=== PATIENT | male | born 1940 | race Caucasian/White ===

== ENCOUNTER 2021-06-14 10:07 | Outpatient (CLI) | payer MEDICARE, OTHER | END 2021-06-14 10:08 | disposition home or self-care (01) | LOC: RAD 10:07 | PROVIDERS: ATTEND Internal Medicine | DX: R06.00 Dyspnea, unspecified (principal) | CPT/HCPCS: 71046 ==

== ENCOUNTER 2021-07-27 12:38 | Outpatient (CLI) | payer MEDICARE ==
[2021-07-27 14:59] LABS: #Monocytes 0.5 10x3/uL (0.0-1.1); #Neutrophils 8.9 10x3/uL (1.5-8.4); %Basophils 0.1 % (0.0-2.0); %Lymphocytes 13.6 % (18.0-47.0); %Monocytes 4.6 % (0.0-10.0); %Neutrophils 81.1 % (40.0-75.0); Hemoglobin 13.6 g/dL (13.5-17.5); Mean Corpuscular Hemoglobin 30.1 pg (27.0-33.0); Mean Corpuscular Volume 91.2 fl (81.2-95.1); Mean Platelet Volume 9.4 fl (7.4-10.4); Platelet Count 193 10x3/uL (150-450); RBC Distribution Width 12.9 % (11.5-14.5); Red Blood Cell (RBC) Count 4.52 10x6/uL (4.32-5.72)
[2021-07-27 15:19] LABS: ALT (SGPT) 15 U/L (8-55); AST (SGOT) 16 U/L (5-34); Albumin 4.2 g/dL (3.4-4.8); Alkaline Phosphatase 42 U/L (40-110); Anion Gap 14 mmol/L (10-20); BUN (Urea Nitrogen) 21 mg/dL (8.4-25.7); Bilirubin, Total 0.6 mg/dL (0.2-1.2); Calc. Creatinine Clearance 0 mL/min (70-130); Carbon Dioxide 24 mmol/L (23-31); Chloride 106 mmol/L (98-107); Globulin 3.4 g/dL (2.4-3.5); Glucose 149 mg/dL (83-110); Potassium 3.9 mmol/L (3.5-5.1); Protein, Total 7.6 g/dL (5.8-8.1); Sodium 140 mmol/L (136-145)
[2021-07-28 13:55] LABS: SARS-CoV-2 PCR by NAA Not Detected (NotDetected)
== END 2021-07-27 12:39 | disposition home or self-care (01) ==
LOC: LABBT 12:38
PROVIDERS: ATTEND Internal Medicine Cardiovascular Disease
DX: Z01.812 Encounter for preprocedural laboratory examination (principal); R94.39 Abnormal result of other cardiovascular function study; Z20.822 Contact with and (suspected) exposure to COVID-19
CPT/HCPCS: 80053; 85025; U0003; U0005

== ENCOUNTER 2021-08-02 12:57 | Outpatient (CLI) | payer MEDICARE ==
[2021-08-03 11:22] LABS: SARS-CoV-2 PCR by NAA Not Detected (NotDetected)
== END 2021-08-02 12:58 | disposition home or self-care (01) ==
LOC: LABBT 12:57
PROVIDERS: ATTEND Internal Medicine Cardiovascular Disease
DX: Z01.812 Encounter for preprocedural laboratory examination (principal); Z20.822 Contact with and (suspected) exposure to COVID-19
CPT/HCPCS: U0003; U0005

== ENCOUNTER 2021-08-03 06:12 | Day surgery (SDC) | payer MEDICARE ==
[2021-07-31 12:26] VITALS: BMI 35.5
[2021-08-03] MEDS ORDERED: Midazolam HCl 2 mg/2 ml Vial ONE (08:05)
[2021-08-03] MEDS ORDERED: Fentanyl 100 MCG/2 ML VIAL ONE (08:06)
[2021-08-03] MEDS ORDERED: Iopamidol 370 76% 100 ML VIAL ONE (08:25)
[2021-08-03] MEDS ORDERED: Amlodipine 5 MG TAB ONE (14:55)
[2021-08-03] MEDS ORDERED: Furosemide 20 MG/2 ML VIAL ONE (15:11)
[2021-08-03] MEDS ORDERED: Potassium Chloride 20 MEQ TAB PO SCH (15:30)
[2021-08-03] MEDS ORDERED: Amlodipine 5 MG TAB PO SCH (15:30)
== END 2021-08-03 16:10 | disposition home or self-care (01) ==
LOC: CCL 06:12
PROVIDERS: ATTEND Internal Medicine Cardiovascular Disease
PROC: 4A023N7 Measurement of Cardiac Sampling and Pressure, Left Heart, Percutaneous Approach (ICD-10-PCS; principal; 2021-08-03)
PROC: B2111ZZ Fluoroscopy of Multiple Coronary Arteries using Low Osmolar Contrast (ICD-10-PCS; 2021-08-03)
DX: R94.39 Abnormal result of other cardiovascular function study (principal); I25.10 Atherosclerotic heart disease of native coronary artery without angina pectoris; E78.5 Hyperlipidemia, unspecified; E78.00 Pure hypercholesterolemia, unspecified; G47.33 Obstructive sleep apnea (adult) (pediatric); J45.909 Unspecified asthma, uncomplicated; R73.03 Prediabetes; I13.0 Hypertensive heart and chronic kidney disease with heart failure and stage 1 through stage 4 chronic kidney disease, or unspecified chronic kidney disease; N18.9 Chronic kidney disease, unspecified; I50.32 Chronic diastolic (congestive) heart failure; E66.01 Morbid (severe) obesity due to excess calories; Z68.35 Body mass index [BMI] 35.0-35.9, adult; Z85.46 Personal history of malignant neoplasm of prostate; Z79.82 Long term (current) use of aspirin; Z79.899 Other long term (current) drug therapy; Z88.6 Allergy status to analgesic agent; Z88.8 Allergy status to other drugs, medicaments and biological substances
CPT/HCPCS: 93458; 99152; 99153; J1940; J2250; J3010; Q9967

== ENCOUNTER 2021-10-04 11:24 | Outpatient (CLI) | payer MEDICARE ==
[2021-10-04 12:36] LABS: Hemoglobin 13.3 g/dL (13.5-17.5); Mean Corpuscular Hemoglobin 29.5 pg (27.0-33.0); Mean Corpuscular Volume 92.2 fl (81.2-95.1); Platelet Count 220 10x3/uL (150-450); RBC Distribution Width 14.1 % (11.5-14.5); Red Blood Cell (RBC) Count 4.51 10x6/uL (4.32-5.72); White Blood Cell (WBC) Count 7.9 10x3/uL (3.5-10.5)
[2021-10-04 13:01] LABS: Anion Gap 18 mmol/L (10-20); BUN (Urea Nitrogen) 11 mg/dL (8.4-25.7); Calc. Creatinine Clearance 0 mL/min (70-130); Calcium 9.1 mg/dL (7.8-10.44); Carbon Dioxide 23 mmol/L (23-31); Chloride 105 mmol/L (98-107); Glucose 106 mg/dL (83-110); Potassium 5.6 mmol/L (3.5-5.1); Sodium 140 mmol/L (136-145)
== END 2021-10-04 11:25 | disposition home or self-care (01) ==
LOC: LABBT 11:24
PROVIDERS: ATTEND Orthopaedic Surgery
DX: Z01.812 Encounter for preprocedural laboratory examination (principal); R94.39 Abnormal result of other cardiovascular function study
CPT/HCPCS: 80048; 85027; 86850; 86900; 86901

== ENCOUNTER 2021-10-04 11:45 | Inpatient (IN) | payer MEDICARE ==
[2021-10-03 14:06] VITALS: BMI 34.4
[2021-10-09] MEDS ORDERED: Lidocaine 1% MPF 2 ML VIAL ONE (06:16)
[2021-10-09] MEDS ORDERED: Albumin 5% 500 ML ONE (06:16)
[2021-10-09] MEDS ORDERED: Midazolam HCl 5 mg/5 ml Vial ONE (06:47)
[2021-10-09] MEDS ORDERED: Fentanyl 250 MCG/5 ML VIAL ONE (06:47)
[2021-10-09] MEDS ORDERED: Heparin 10,000 UNITS/1 ML VIAL 30,000 UNITS in Sodium Chloride 0.9% 1,000 ML FS SCH (07:00)
== END 2021-10-09 07:15 | disposition home or self-care (01) | DRG 303 ==
LOC: SURG A 10-09 05:51
PROVIDERS: ADMIT Thoracic Surgery (Cardiothoracic Vascular Surgery); ATTEND Thoracic Surgery (Cardiothoracic Vascular Surgery)
DX: I25.10 Atherosclerotic heart disease of native coronary artery without angina pectoris (principal); Z20.822 Contact with and (suspected) exposure to COVID-19; E78.5 Hyperlipidemia, unspecified; I10 Essential (primary) hypertension; E66.01 Morbid (severe) obesity due to excess calories; G47.33 Obstructive sleep apnea (adult) (pediatric); Z79.82 Long term (current) use of aspirin; Z79.890 Hormone replacement therapy; Z79.899 Other long term (current) drug therapy; Z98.890 Other specified postprocedural states; Z85.46 Personal history of malignant neoplasm of prostate; Z87.891 Personal history of nicotine dependence; Z88.8 Allergy status to other drugs, medicaments and biological substances; Z68.34 Body mass index [BMI] 34.0-34.9, adult; Z53.9 Procedure and treatment not carried out, unspecified reason
CPT/HCPCS: 86850; 86900; 86901; J2250; J3010; P9045

== ENCOUNTER 2021-11-07 11:15 | Inpatient (IN) | payer MEDICARE ==
[2021-11-07 11:31] LABS: Hemoglobin 13.9 g/dL (13.5-17.5); Mean Corpuscular HGB CONC 32.8 g/dL (32.0-36.0); Mean Corpuscular Hemoglobin 30.6 pg (27.0-33.0); Mean Corpuscular Volume 93.4 fl (81.2-95.1); Mean Platelet Volume 8.8 fl (7.4-10.4); Platelet Count 163 10x3/uL (150-450); RBC Distribution Width 14.4 % (11.5-14.5); Red Blood Cell (RBC) Count 4.54 10x6/uL (4.32-5.72)
[2021-11-07 12:05] LABS: Anion Gap 14 mmol/L (10-20); BUN (Urea Nitrogen) 16 mg/dL (8.4-25.7); Calc. Creatinine Clearance 0 mL/min (70-130); Calcium 9.1 mg/dL (7.8-10.44); Carbon Dioxide 26 mmol/L (23-31); Chloride 103 mmol/L (98-107); Glucose 103 mg/dL (83-110); Potassium 4.2 mmol/L (3.5-5.1); Sodium 139 mmol/L (136-145)
[2021-11-07 19:25] LABS: SARS-CoV-2 PCR by NAA Not Detected (NotDetected)
[2021-11-12] MEDS ORDERED: Albumin 5% 500 ML ONE (06:16)
[2021-11-12] MEDS ORDERED: Fentanyl 250 MCG/5 ML VIAL ONE ×3 (06:41)
[2021-11-12] MEDS ORDERED: Heparin 10,000 UNITS/1 ML VIAL 30,000 UNITS in Sodium Chloride 0.9% 1,000 ML FS SCH (06:45)
[2021-11-12] MEDS ORDERED: ceFAZolin 2 GM/DEX 5% 100 ML BAG ONE ×2 (07:04→07:05)
[2021-11-12] MEDS ORDERED: Thrombin 5000 UNITS/5 ML VIAL ONE (07:46)
[2021-11-12] MEDS ORDERED: Cardioplegic Soln 1,000 ML BAG ONE (07:46)
[2021-11-12] MEDS ORDERED: ePHEDrine 50 MG/ML VIAL ONE (07:46)
[2021-11-12] MEDS ORDERED: Rocuronium Bromide 10 MG/ML (10ML VIAL) ONE (07:46)
[2021-11-12] MEDS ORDERED: Magnesium Sulfate 1 GM/2 ML VIAL ONE (07:46)
[2021-11-12] MEDS ORDERED: Protamine Sulfate 250 MG/25 ML VIAL ONE (07:46)
[2021-11-12] MEDS ORDERED: Heparin 5,000 UNITS/ML VIAL ONE (07:46)
[2021-11-12] MEDS ORDERED: Aminocaproic Acid 5 GM/20 ML VIAL ONE (07:46)
[2021-11-12] MEDS ORDERED: Papaverine 60 MG/2 ML VIAL ONE (07:46)
[2021-11-12] MEDS ORDERED: Norepinephrine 4 MG/4 ML VIAL ONE (07:46)
[2021-11-12] MEDS ORDERED: Heparin 30,000 units/30 ml VIAL ONE (07:46)
[2021-11-12] MEDS ORDERED: Potassium Chloride 60 MEQ/30 ML VIAL ONE (07:46)
[2021-11-12] MEDS ORDERED: Calcium Chloride 1 GM/10 ML Abboject SYRINGE ONE (07:46)
[2021-11-12] MEDS ORDERED: Lidocaine 2% PF 100 mg/5 ml Syringe ONE (07:46)
[2021-11-12] MEDS ORDERED: PROPOFOL 200 MG/20 ML VIAL ONE (07:46)
[2021-11-12] MEDS ORDERED: Sodium Bicarb 50 MEQ/50 ML Abboject 8.4% SYRINGE ONE (07:46)
[2021-11-12] MEDS ORDERED: PHENYLEPHRINE-NS 100 MCG/ML 10 ML SYRINGE ONE (09:27)
[2021-11-12] MEDS ORDERED: Norepinephrine 8 MG/0.9% NS 250 ML IVPB PRN (11:27)
[2021-11-12] MEDS ORDERED: Bisacodyl 5 MG TAB PO PRN (11:27)
[2021-11-12] MEDS ORDERED: HYDROcodone/Acetaminophen 5/325 mg Tablet PO PRN (11:27)
[2021-11-12] MEDS ORDERED: Hetastarch 6% 500 ML 500 ML IVPB PRN (11:27)
[2021-11-12] MEDS ORDERED: Fentanyl 100 MCG/2 ML VIAL SLOW IVP PRN (11:27)
[2021-11-12] MEDS ORDERED: DOPamine 400 MG/D5W 250 ML 250 ML IVPB PRN (11:27)
[2021-11-12] MEDS ORDERED: Guaifenesin DM 100-10/5 ML UDCUP PO PRN (11:27)
[2021-11-12] MEDS ORDERED: Bisacodyl 10 MG SUPP PR PRN (11:27)
[2021-11-12] MEDS ORDERED: Promethazine HCl 25 MG/ML VIAL IM PRN (11:27)
[2021-11-12] MEDS ORDERED: Post-Op Insulin Drip Protocol IVPB ONE (11:27)
[2021-11-12] MEDS ORDERED: Ondansetron PF 4 MG/2 ML Vial IVP PRN (11:27)
[2021-11-12] MEDS ORDERED: Potassium Chloride 20 MEQ/100 ML PREMIX BAG IVPB PRN (11:27)
[2021-11-12] MEDS ORDERED: Mag-Al 1200 mg/1200 mg/30 ML UDCUP PO PRN (11:27)
[2021-11-12] MEDS ORDERED: HUMULIN R 100 UNITS in Sodium Chloride 0.9% 100 ML IVPB SCH (11:45)
[2021-11-12] MEDS ORDERED: Dextrose 50% Abboject 50 ML SYRINGE SLOW IVP PRN (11:45)
[2021-11-12] MEDS ORDERED: Dextrose 5% in Water 1,000 ML IV PRN (11:45)
[2021-11-12 12:01] LABS: Actual Bicarbonate (HCO3a) 23.9 mEq/L (22-28); Base Excess (BEa) -1.4 mEq/L (-2.0 to +3.0); CO2 Tension 42.2 mmHg (35.0-45.0); Calcium, Ionized (arterial) 1.15 mmol/L (1.12-1.30); Carboxyhemoglobin (COHb) 0.7 gm% (0.0-3.0); Hemoglobin (Hb) 12.8 g/dL (14.0-18.0); O2 Tension (PaO2), arterial 109.5 mmHg (> 70.0); Potassium - ABG Lab 3.77 mmol/L (3.70-5.30); pH, Arterial 7.37 (7.35-7.45)
[2021-11-12 12:03] LABS: Puncture Site Arterial Line
[2021-11-12] MEDS: Morphine 4 MG/ML VIAL SLOW IVP PRN ×2 (12:08→13:07)
[2021-11-12] MEDS: Insulin Regular 300 UNITS/3 ML VIAL SC PRN ×3 (12:11→21:35)
[2021-11-12] MEDS: Lactated Ringer's 1,000 ML IV SCH (12:12)
[2021-11-12] MEDS: Nitroglycerin 50 MG/250 ML BOT 250 ML IVPB PRN (12:16)
[2021-11-12 12:29] LABS: INR-International Normal Ratio 1.2; Prothrombin Time 15.6 sec (12.0-14.7)
[2021-11-12 12:30] LABS: PTT 29.9 sec (22.9-36.1)
[2021-11-12 12:35] LABS: Anion Gap 7 mmol/L (10-20); BUN (Urea Nitrogen) 11 mg/dL (8.4-25.7); Calc. Creatinine Clearance 105 mL/min (70-130); Calcium 7.8 mg/dL (7.8-10.44); Carbon Dioxide 26 mmol/L (23-31); Chloride 110 mmol/L (98-107); Glucose 138 mg/dL (83-110); Potassium 3.7 mmol/L (3.5-5.1); Sodium 139 mmol/L (136-145)
[2021-11-12 13:03] LABS: Actual Bicarbonate (HCO3a) 23.4 mEq/L (22-28); Base Excess (BEa) -1.7 mEq/L (-2.0 to +3.0); CO2 Tension 41.2 mmHg (35.0-45.0); Calcium, Ionized (arterial) 1.15 mmol/L (1.12-1.30); Carboxyhemoglobin (COHb) 0.6 gm% (0.0-3.0); Hemoglobin (Hb) 13.6 g/dL (14.0-18.0); O2 Tension (PaO2), arterial 103.8 mmHg (> 70.0); Potassium - ABG Lab 3.45 mmol/L (3.70-5.30); pH, Arterial 7.37 (7.35-7.45)
[2021-11-12] MEDS: hydrALAZINE 20 MG/ML VIAL SLOW IVP PRN (13:08)
[2021-11-12 13:12] LABS: #Eosinphils 0.3 thou/uL (0.0-0.7); #Lymphocytes 2.6 thou/uL (1.20-3.40); #Monocytes 0.4 thou/uL (0.11-0.59); #Neutrophils 6.8 thou/uL (1.40-6.50); %Basophils 0.2 % (0.0-1.0); %Eosinophils 2.5 % (0.0-10.0); %Lymphocytes 25.8 % (21.0-51.0); %Neutrophils 67.5 % (42.0-75.0); Hemoglobin 12.1 g/dL (14.0-18.0); MDiff Complete? YES; Mean Corpuscular HGB CONC 33.1 g/dL (32.0-36.0); Mean Corpuscular Hemoglobin 32.3 pg (27.0-31.0); Mean Corpuscular Volume 97.6 fL (78.0-98.0); Platelet Count 119 thou/uL (130-400); Platelet Morphology Comment Appears Decreased; Polychromasia SLIGHT = 2-3 cells (100X) (0-2/hpf); RBC Distribution Width 13.2 % (11.5-14.5); Red Blood Cell (RBC) Count 3.75 mill/uL (4.70-6.10); White Blood Cell (WBC) Count 10.1 thou/uL (4.8-10.8)
[2021-11-12 13:36] LABS: Puncture Site Arterial Line
[2021-11-12] MEDS: Fentanyl 100 MCG/2 ML VIAL SLOW IVP PRN ×4 (14:21→23:21)
[2021-11-12] MEDS: CEFAZOLIN 2 GM, Admixture Fee 1 EACH in Sodium Chloride 0.9% 100 ML IVPB SCH ×2 (14:40→23:26)
[2021-11-12] MEDS: HYDROcodone/Acetaminophen 5/325 mg Tablet PO PRN ×2 (16:28→21:36)
[2021-11-12 18:04] LABS: Hemoglobin 12.8 g/dL (14.0-18.0)
[2021-11-12 18:14] LABS: Potassium 3.7 mmol/L (3.5-5.1)
[2021-11-12] MEDS: Acetaminophen 325 MG TAB PO PRN (19:12)
[2021-11-12] MEDS ORDERED: Famotidine/PF 20 mg/2ml Vial SLOW IVP SCH (21:00)
[2021-11-12] MEDS ORDERED: Amlodipine 5 MG TAB PO SCH (21:30)
[2021-11-12] MEDS: Atorvastatin Calcium 10 MG TAB PO SCH (21:33)
[2021-11-13] MEDS: Lactated Ringer's 1,000 ML IV SCH (00:53)
[2021-11-13] MEDS: Insulin Regular 300 UNITS/3 ML VIAL SC PRN ×2 (00:54→04:46)
[2021-11-13] MEDS: Fentanyl 100 MCG/2 ML VIAL SLOW IVP PRN ×4 (02:20→11:52)
[2021-11-13] MEDS: HYDROcodone/Acetaminophen 5/325 mg Tablet PO PRN ×3 (04:44→15:55)
[2021-11-13 05:21] LABS: #Lymphocytes 1.6 thou/uL (1.20-3.40); #Monocytes 0.9 thou/uL (0.11-0.59); #Neutrophils 6.9 thou/uL (1.40-6.50); %Eosinophils 0.4 % (0.0-10.0); %Lymphocytes 17.4 % (21.0-51.0); %Monocytes 9.1 % (0.0-10.0); %Neutrophils 73.1 % (42.0-75.0); Hemoglobin 12.5 g/dL (14.0-18.0); Mean Corpuscular HGB CONC 32.8 g/dL (32.0-36.0); Mean Corpuscular Hemoglobin 32.6 pg (27.0-31.0); Mean Corpuscular Volume 99.6 fL (78.0-98.0); Mean Platelet Volume 6.5 fL (7.4-10.4); Platelet Count 149 thou/uL (130-400); RBC Distribution Width 13.5 % (11.5-14.5); Red Blood Cell (RBC) Count 3.82 mill/uL (4.70-6.10); White Blood Cell (WBC) Count 9.4 thou/uL (4.8-10.8)
[2021-11-13 05:37] LABS: Anion Gap 11 mmol/L (10-20); BUN (Urea Nitrogen) 12 mg/dL (8.4-25.7); Calc. Creatinine Clearance 97 mL/min (70-130); Calcium 8.1 mg/dL (7.8-10.44); Carbon Dioxide 22 mmol/L (23-31); Chloride 109 mmol/L (98-107); Glucose 155 mg/dL (83-110); Potassium 4.2 mmol/L (3.5-5.1); Sodium 138 mmol/L (136-145)
[2021-11-13] MEDS: Nitroglycerin 50 MG/250 ML BOT 250 ML IVPB PRN (06:28)
[2021-11-13] MEDS: Levothyroxine Sodium 75 MCG TAB PO SCH (06:54)
[2021-11-13] MEDS: CEFAZOLIN 2 GM, Admixture Fee 1 EACH in Sodium Chloride 0.9% 100 ML IVPB SCH (07:07)
[2021-11-13] MEDS ORDERED: Norepinephrine 8 MG in Dextrose 5% in Water 242 ML IVPB PRN (07:45)
[2021-11-13] MEDS: hydrALAZINE 20 MG/ML VIAL SLOW IVP PRN (08:22)
[2021-11-13] MEDS: Famotidine 20 MG TAB PO SCH ×2 (08:22→20:49)
[2021-11-13] MEDS: Aspirin 325 MG TAB PO SCH (08:22)
[2021-11-13] MEDS: Polyethylene Glycol 3350 17 GM Packet PO SCH (08:23)
[2021-11-13] MEDS ORDERED: Losartan 25 MG TAB PO SCH ×2 (09:00→15:45)
[2021-11-13] MEDS ORDERED: Amlodipine 5 MG TAB PO SCH (09:00)
[2021-11-13] MEDS: Gabapentin 400 MG CAP PO SCH ×3 (09:31→20:49)
[2021-11-13] MEDS ORDERED: cloNIDine 0.1 MG TAB PO SCH (12:30)
[2021-11-13 13:22] LABS: Analyzer IN Cardio OR; Base Excess (BEa) -0.3 mEq/L (-2.0 to +3.0); CO2 Tension 37.9 mmHg (35.0-45.0); Calcium, Ionized (arterial) 1.09 mmol/L (1.12-1.30); Carboxyhemoglobin (COHb) 0.3 gm% (0.0-3.0); Hemoglobin (Hb) 10.5 g/dL (14.0-18.0); O2 Tension (PaO2), arterial 143.8 mmHg (> 70.0); Potassium - ABG Lab 3.84 mmol/L (3.70-5.30); pH, Arterial 7.42 (7.35-7.45)
[2021-11-13 13:22] LABS: Actual Bicarbonate (HCO3a) 23.9 mEq/L (22-28); Analyzer IN Cardio OR; Base Excess (BEa) -0.3 mEq/L (-2.0 to +3.0); CO2 Tension 37.8 mmHg (35.0-45.0); Calcium, Ionized (arterial) 1.12 mmol/L (1.12-1.30); Carboxyhemoglobin (COHb) 0.7 gm% (0.0-3.0); Hemoglobin (Hb) 12.3 g/dL (14.0-18.0); O2 Tension (PaO2), arterial 80.8 mmHg (> 70.0); Potassium - ABG Lab 3.75 mmol/L (3.70-5.30); pH, Arterial 7.42 (7.35-7.45)
[2021-11-13] MEDS: niCARdipine 25 MG in Sodium Chloride 0.9% 250 ML 250 ML IVPB PRN ×3 (13:22→21:44)
[2021-11-13 13:23] LABS: Actual Bicarbonate (HCO3a) 21.4 mEq/L (22-28); Analyzer IN Cardio OR; Base Excess (BEa) -3.2 mEq/L (-2.0 to +3.0); CO2 Tension 36.5 mmHg (35.0-45.0); Calcium, Ionized (arterial) 1.09 mmol/L (1.12-1.30); Carboxyhemoglobin (COHb) 0.2 gm% (0.0-3.0); Hemoglobin (Hb) 10.5 g/dL (14.0-18.0); O2 Tension (PaO2), arterial 356.3 mmHg (> 70.0); Potassium - ABG Lab 4.33 mmol/L (3.70-5.30); pH, Arterial 7.39 (7.35-7.45)
[2021-11-13 13:23] LABS: Actual Bicarbonate (HCO3a) 23.7 mEq/L (22-28); Analyzer IN Cardio OR; Base Excess (BEa) -0.5 mEq/L (-2.0 to +3.0); CO2 Tension 36.9 mmHg (35.0-45.0); Calcium, Ionized (arterial) 1.03 mmol/L (1.12-1.30); Carboxyhemoglobin (COHb) 0.1 gm% (0.0-3.0); Hemoglobin (Hb) 10.6 g/dL (14.0-18.0); O2 Tension (PaO2), arterial 365.3 mmHg (> 70.0); Potassium - ABG Lab 4.15 mmol/L (3.70-5.30); pH, Arterial 7.43 (7.35-7.45)
[2021-11-13 13:23] LABS: Actual Bicarbonate (HCO3v) 23 mEq/L (22-28); Analyzer IN Cardio OR; Base Excess -2.2 mEq/L (-2.0 to +3.0); Calcium, Ionized (venous) 1.07 mmol/L (1.16-1.32); Chloride (VBG) 105 mmol/L (98-106); Hemoglobin (Hb) 10.7 g/dL (12.6-17.4); Potassium (VBG) 4.15 mmol/L (3.70-5.30); Sodium 135.5 mmol/L (133-146); pH (venous) 7.38 (7.32-7.43)
[2021-11-13] MEDS ORDERED: niCARdipine 25 MG/10 ML VIAL ONE (13:24)
[2021-11-13 13:44] LABS: Actual Bicarbonate (HCO3a) 24.7 mEq/L (22-28); Analyzer IN Cardio OR; Base Excess (BEa) -0.3 mEq/L (-2.0 to +3.0); CO2 Tension 41.8 mmHg (35.0-45.0); Calcium, Ionized (arterial) 1.12 mmol/L (1.12-1.30); Carboxyhemoglobin (COHb) 0.5 gm% (0.0-3.0); Hemoglobin (Hb) 12.5 g/dL (14.0-18.0); O2 Tension (PaO2), arterial 187.2 mmHg (> 70.0); Potassium - ABG Lab 3.53 mmol/L (3.70-5.30); pH, Arterial 7.39 (7.35-7.45)
[2021-11-13 13:45] LABS: Actual Bicarbonate (HCO3a) 24.1 mEq/L (22-28); Analyzer IN Cardio OR; Base Excess (BEa) -0.3 mEq/L (-2.0 to +3.0); CO2 Tension 38.5 mmHg (35.0-45.0); Calcium, Ionized (arterial) 1.14 mmol/L (1.12-1.30); Carboxyhemoglobin (COHb) 1.1 gm% (0.0-3.0); Hemoglobin (Hb) 12.9 g/dL (14.0-18.0); O2 Tension (PaO2), arterial 126.1 mmHg (> 70.0); Potassium - ABG Lab 3.61 mmol/L (3.70-5.30); pH, Arterial 7.41 (7.35-7.45)
[2021-11-13 13:46] LABS: Puncture Site Arterial Line
[2021-11-13 13:46] LABS: Puncture Site Arterial Line
[2021-11-13 13:47] LABS: Puncture Site Arterial Line
[2021-11-13 13:47] LABS: Puncture Site Arterial Line
[2021-11-13 13:48] LABS: Puncture Site Arterial Line
[2021-11-13 13:48] LABS: Puncture Site Arterial Line
[2021-11-13] MEDS: Carvedilol 3.125 MG TAB PO SCH (15:55)
[2021-11-13] MEDS: Amlodipine 5 MG TAB PO SCH (20:49)
[2021-11-13] MEDS: Atorvastatin Calcium 10 MG TAB PO SCH (20:49)
[2021-11-14] MEDS: Fentanyl 100 MCG/2 ML VIAL SLOW IVP PRN ×2 (01:58→06:51)
[2021-11-14] MEDS: niCARdipine 25 MG in Sodium Chloride 0.9% 250 ML 250 ML IVPB PRN (01:59)
[2021-11-14 04:12] LABS: #Basophils 0.2 thou/uL (0.0-0.2); #Lymphocytes 1.2 thou/uL (1.20-3.40); #Monocytes 0.8 thou/uL (0.11-0.59); %Basophils 1.6 % (0.0-1.0); %Eosinophils 0.2 % (0.0-10.0); %Lymphocytes 11.7 % (21.0-51.0); %Monocytes 7.8 % (0.0-10.0); %Neutrophils 78.6 % (42.0-75.0); Hemoglobin 12.1 g/dL (14.0-18.0); Mean Corpuscular HGB CONC 31.4 g/dL (32.0-36.0); Mean Corpuscular Hemoglobin 31.2 pg (27.0-31.0); Mean Corpuscular Volume 99.2 fL (78.0-98.0); Mean Platelet Volume 6.5 fL (7.4-10.4); Platelet Count 140 thou/uL (130-400); RBC Distribution Width 13.3 % (11.5-14.5); White Blood Cell (WBC) Count 10.2 thou/uL (4.8-10.8)
[2021-11-14] MEDS ORDERED: niCARdipine 50 MG, Admixture Fee 1 EACH in Sodium Chloride 0.9% 250 ML 230 ML IVPB PRN ×2 (04:28→08:25)
[2021-11-14 04:32] LABS: Anion Gap 11 mmol/L (10-20); BUN (Urea Nitrogen) 10 mg/dL (8.4-25.7); Calc. Creatinine Clearance 129 mL/min (70-130); Calcium 8.4 mg/dL (7.8-10.44); Carbon Dioxide 23 mmol/L (23-31); Chloride 106 mmol/L (98-107); Glucose 140 mg/dL (83-110); Potassium 3.6 mmol/L (3.5-5.1); Sodium 136 mmol/L (136-145)
[2021-11-14] MEDS: Levothyroxine Sodium 75 MCG TAB PO SCH (06:06)
[2021-11-14] MEDS ORDERED: Nitroglycerin 0.4 MG TAB (25 Tab Bottle) SL PRN (07:12)
[2021-11-14] MEDS: Aspirin 325 MG TAB PO SCH (10:22)
[2021-11-14] MEDS: Gabapentin 400 MG CAP PO SCH ×3 (10:22→20:20)
[2021-11-14] MEDS: Losartan 25 MG TAB PO SCH (10:24)
[2021-11-14] MEDS: Furosemide 40 MG TAB PO SCH (10:24)
[2021-11-14] MEDS: cloNIDine 0.1 MG TAB PO SCH ×2 (10:28→20:20)
[2021-11-14] MEDS: Carvedilol 3.125 MG TAB PO SCH ×2 (10:29→17:28)
[2021-11-14] MEDS: Famotidine 20 MG TAB PO SCH ×2 (10:29→20:21)
[2021-11-14] MEDS: Polyethylene Glycol 3350 17 GM Packet PO SCH (10:32)
[2021-11-14] MEDS: Simvastatin 10 MG TAB PO SCH (20:20)
[2021-11-14] MEDS: Amlodipine 5 MG TAB PO SCH (20:21)
[2021-11-15] MEDS: Acetaminophen 325 MG TAB PO PRN ×2 (03:46→20:34)
[2021-11-15] MEDS: Levothyroxine Sodium 75 MCG TAB PO SCH (06:03)
[2021-11-15] MEDS: Furosemide 40 MG TAB PO SCH (08:14)
[2021-11-15] MEDS: Carvedilol 3.125 MG TAB PO SCH ×2 (08:14→16:00)
[2021-11-15] MEDS: Gabapentin 400 MG CAP PO SCH ×3 (09:52→20:33)
[2021-11-15] MEDS: Losartan 25 MG TAB PO SCH (09:52)
[2021-11-15] MEDS: Famotidine 20 MG TAB PO SCH ×2 (09:53→20:33)
[2021-11-15] MEDS: cloNIDine 0.1 MG TAB PO SCH ×2 (09:53→20:34)
[2021-11-15] MEDS: Aspirin 325 MG TAB PO SCH (09:53)
[2021-11-15] MEDS: Polyethylene Glycol 3350 17 GM Packet PO SCH (09:53)
[2021-11-15] MEDS: Simvastatin 10 MG TAB PO SCH (20:33)
[2021-11-15] MEDS: Amlodipine 5 MG TAB PO SCH (20:35)
[2021-11-16] MEDS: hydrALAZINE 20 MG/ML VIAL SLOW IVP PRN ×2 (03:18→07:58)
[2021-11-16] MEDS: Levothyroxine Sodium 75 MCG TAB PO SCH (05:41)
[2021-11-16 05:59] VITALS: BMI 34.9
[2021-11-16] MEDS: Furosemide 40 MG TAB PO SCH (07:32)
[2021-11-16] MEDS: Carvedilol 3.125 MG TAB PO SCH (07:32)
[2021-11-16] MEDS ORDERED: Furosemide 40 MG/4 ML VIAL SLOW IVP SCH (09:00)
[2021-11-16] MEDS: Gabapentin 400 MG CAP PO SCH ×3 (09:02→22:16)
[2021-11-16] MEDS: Aspirin 325 MG TAB PO SCH (09:02)
[2021-11-16] MEDS: Losartan 25 MG TAB PO SCH (09:05)
[2021-11-16] MEDS: Famotidine 20 MG TAB PO SCH ×2 (09:05→22:17)
[2021-11-16] MEDS: cloNIDine 0.1 MG TAB PO SCH ×2 (09:06→22:16)
[2021-11-16] MEDS: Polyethylene Glycol 3350 17 GM Packet PO SCH (09:10)
[2021-11-16] MEDS: Digoxin 0.5 MG/2 ML AMP SLOW IVP SCH ×3 (09:37→22:31)
[2021-11-16] MEDS: Carvedilol 6.25 MG TAB PO SCH ×2 (16:33→22:17)
[2021-11-16] MEDS: Simvastatin 10 MG TAB PO SCH (22:14)
[2021-11-16] MEDS: Amlodipine 5 MG TAB PO SCH (22:14)
[2021-11-17] MEDS: Digoxin 0.5 MG/2 ML AMP SLOW IVP SCH (04:06)
[2021-11-17] MEDS: Levothyroxine Sodium 75 MCG TAB PO SCH (06:16)
[2021-11-17] MEDS: Gabapentin 400 MG CAP PO SCH ×3 (09:32→21:40)
[2021-11-17] MEDS: Losartan 25 MG TAB PO SCH (09:32)
[2021-11-17] MEDS: Aspirin 325 MG TAB PO SCH (09:32)
[2021-11-17] MEDS: Carvedilol 6.25 MG TAB PO SCH ×3 (09:34→21:41)
[2021-11-17] MEDS: cloNIDine 0.1 MG TAB PO SCH ×2 (09:38→21:42)
[2021-11-17] MEDS: Furosemide 40 MG TAB PO SCH ×2 (09:38→15:07)
[2021-11-17] MEDS: Famotidine 20 MG TAB PO SCH ×2 (09:38→21:43)
[2021-11-17] MEDS: Polyethylene Glycol 3350 17 GM Packet PO SCH (09:39)
[2021-11-17] MEDS: Simvastatin 10 MG TAB PO SCH (21:42)
[2021-11-17] MEDS: Amlodipine 5 MG TAB PO SCH (21:42)
[2021-11-18] MEDS: Levothyroxine Sodium 75 MCG TAB PO SCH (06:21)
[2021-11-18] MEDS ORDERED: Carvedilol 25 MG TAB PO SCH (08:00)
[2021-11-18] MEDS: Gabapentin 400 MG CAP PO SCH (09:54)
[2021-11-18] MEDS: Famotidine 20 MG TAB PO SCH (09:54)
[2021-11-18] MEDS: Aspirin 325 MG TAB PO SCH (09:54)
[2021-11-18] MEDS: cloNIDine 0.1 MG TAB PO SCH (09:57)
[2021-11-18] MEDS: Losartan 25 MG TAB PO SCH (09:57)
[2021-11-18] MEDS: Polyethylene Glycol 3350 17 GM Packet PO SCH (09:58)
[2021-11-18] MEDS: Furosemide 40 MG TAB PO SCH ×2 (09:58→13:51)
[2021-11-18 13:18] VITALS: BP 104/59; TEMP 98.3
[2021-11-18] MEDS ORDERED: Carvedilol 6.25 MG TAB PO SCH (17:00)
== END 2021-11-18 14:15 | disposition home or self-care (01) | DRG 236 ==
LOC: SURG A 11-12 06:06 → CCU 11-12 09:39 → 2NO 11-16 13:38
PROVIDERS: ADMIT Thoracic Surgery (Cardiothoracic Vascular Surgery); ATTEND Thoracic Surgery (Cardiothoracic Vascular Surgery)
PROC: 02100Z9 Bypass Coronary Artery, One Artery from Left Internal Mammary, Open Approach (ICD-10-PCS; principal; 2021-11-12)
PROC: 021309W Bypass Coronary Artery, Four or More Arteries from Aorta with Autologous Venous Tissue, Open Approach (ICD-10-PCS; 2021-11-12)
PROC: 06BP4ZZ Excision of Right Saphenous Vein, Percutaneous Endoscopic Approach (ICD-10-PCS; 2021-11-12)
PROC: 5A1221Z Performance of Cardiac Output, Continuous (ICD-10-PCS; 2021-11-12)
PROC: 02L70CK Occlusion of Left Atrial Appendage with Extraluminal Device, Open Approach (ICD-10-PCS; 2021-11-12)
DX: I25.10 Atherosclerotic heart disease of native coronary artery without angina pectoris (principal); I50.32 Chronic diastolic (congestive) heart failure; I48.20 Chronic atrial fibrillation, unspecified; Z20.822 Contact with and (suspected) exposure to COVID-19; Z96.651 Presence of right artificial knee joint; E66.01 Morbid (severe) obesity due to excess calories; E78.5 Hyperlipidemia, unspecified; G47.33 Obstructive sleep apnea (adult) (pediatric); R73.03 Prediabetes; I11.0 Hypertensive heart disease with heart failure; F32.A Depression, unspecified; J45.909 Unspecified asthma, uncomplicated; G62.9 Polyneuropathy, unspecified; I44.30 Unspecified atrioventricular block; R00.0 Tachycardia, unspecified; Z85.46 Personal history of malignant neoplasm of prostate; Z79.899 Other long term (current) drug therapy; Z79.890 Hormone replacement therapy; Z79.82 Long term (current) use of aspirin; Z68.33 Body mass index [BMI] 33.0-33.9, adult; Z98.890 Other specified postprocedural states; Z88.8 Allergy status to other drugs, medicaments and biological substances
CPT/HCPCS: 36415; 36416; 36430; 71045; 80048; 82805; 85025; 85027; 85610; 85730; 86850; 86900; 86901; 93005; 93010; 93798; 94002; C1713; C1751; C1776; J0360; J0690; J1160; J1642; J1644; J1815; J1940; J2001; J2270; J2440; J2704; J2720; J3010; J3370; J3475; J3480; J3490; J7050; J7120; P9045; S0017; S0028; U0003; U0005

== ENCOUNTER 2021-12-21 14:07 | Outpatient (CLI) | payer MEDICARE ==
[2021-12-22 12:37] LABS: SARS-CoV-2 PCR by NAA Not Detected (NotDetected)
== END 2021-12-21 14:08 | disposition home or self-care (01) ==
LOC: LABBT 14:07
PROVIDERS: ATTEND Internal Medicine Cardiovascular Disease
DX: Z20.822 Contact with and (suspected) exposure to COVID-19 (principal)
CPT/HCPCS: U0003; U0005

== ENCOUNTER 2021-12-26 09:19 | Day surgery (SDC) | payer MEDICARE ==
[2021-12-24 13:04] VITALS: BMI 33.3
[2021-12-26] MEDS ORDERED: PROPOFOL 20 ML ONE (10:58)
[2021-12-26 12:18] LABS: Hemoglobin 11.9 g/dL (14.0-18.0); Mean Corpuscular HGB CONC 31.5 g/dL (32.0-36.0); Mean Corpuscular Volume 98.4 fL (78.0-98.0); Mean Platelet Volume 6.3 fL (7.4-10.4); Platelet Count 220 thou/uL (130-400); RBC Distribution Width 12.5 % (11.5-14.5); Red Blood Cell (RBC) Count 3.85 mill/uL (4.70-6.10); White Blood Cell (WBC) Count 5.9 thou/uL (4.8-10.8)
[2021-12-26 12:35] LABS: Anion Gap 13 mmol/L (10-20); BUN (Urea Nitrogen) 9 mg/dL (8.4-25.7); Calc. Creatinine Clearance 85 mL/min (70-130); Calcium 8.9 mg/dL (7.8-10.44); Carbon Dioxide 24 mmol/L (23-31); Chloride 105 mmol/L (98-107); Glucose 108 mg/dL (83-110); Potassium 3.9 mmol/L (3.5-5.1); Sodium 138 mmol/L (136-145)
== END 2021-12-26 13:35 | disposition home or self-care (01) ==
LOC: SDC 09:19
PROVIDERS: ATTEND Internal Medicine Cardiovascular Disease
PROC: 5A2204Z Restoration of Cardiac Rhythm, Single (ICD-10-PCS; principal; 2021-12-26)
DX: I48.19 Other persistent atrial fibrillation (principal); R00.1 Bradycardia, unspecified; I25.10 Atherosclerotic heart disease of native coronary artery without angina pectoris; I13.0 Hypertensive heart and chronic kidney disease with heart failure and stage 1 through stage 4 chronic kidney disease, or unspecified chronic kidney disease; N18.9 Chronic kidney disease, unspecified; I50.32 Chronic diastolic (congestive) heart failure; E78.00 Pure hypercholesterolemia, unspecified; G47.33 Obstructive sleep apnea (adult) (pediatric); R73.03 Prediabetes; J45.909 Unspecified asthma, uncomplicated; E66.01 Morbid (severe) obesity due to excess calories; Z68.33 Body mass index [BMI] 33.0-33.9, adult; Z85.46 Personal history of malignant neoplasm of prostate; Z79.82 Long term (current) use of aspirin; Z79.890 Hormone replacement therapy; Z79.899 Other long term (current) drug therapy; Z88.6 Allergy status to analgesic agent; Z88.8 Allergy status to other drugs, medicaments and biological substances; Z95.1 Presence of aortocoronary bypass graft
CPT/HCPCS: 36415; 80048; 85027; 92960; 93005; 93010; J2704

== ENCOUNTER 2022-01-18 11:44 | Outpatient (CLI) | payer MEDICARE ==
[2022-01-18 13:47] LABS: #Basophils 0.1 10x3/uL (0.0-0.2); #Eosinphils 0.2 10x3/uL (0.0-0.5); #Monocytes 0.6 10x3/uL (0.0-1.1); #Neutrophils 4.2 10x3/uL (1.5-8.4); %Eosinophils 2.5 % (0.0-6.0); %Lymphocytes 30.1 % (18.0-47.0); %Monocytes 7.9 % (0.0-10.0); %Neutrophils 58.2 % (40.0-75.0); Hemoglobin 13.1 g/dL (13.5-17.5); Mean Corpuscular HGB CONC 32.1 g/dL (32.0-36.0); Mean Corpuscular Hemoglobin 29.6 pg (27.0-33.0); Mean Corpuscular Volume 92.3 fl (81.2-95.1); Mean Platelet Volume 9.6 fl (7.4-10.4); Platelet Count 211 10x3/uL (150-450); RBC Distribution Width 13.7 % (11.5-14.5); Red Blood Cell (RBC) Count 4.42 10x6/uL (4.32-5.72); White Blood Cell (WBC) Count 7.2 10x3/uL (3.5-10.5)
[2022-01-18 14:02] LABS: Anion Gap 16 mmol/L (10-20); BUN (Urea Nitrogen) 13 mg/dL (8.4-25.7); Calc. Creatinine Clearance 0 mL/min (70-130); Carbon Dioxide 24 mmol/L (23-31); Chloride 104 mmol/L (98-107); Sodium 140 mmol/L (136-145)
[2022-01-18 14:03] LABS: Calcium 9.2 mg/dL (7.8-10.44); Glucose 100 mg/dL (83-110)
== END 2022-01-18 11:45 | disposition home or self-care (01) ==
LOC: LABBT 11:44
PROVIDERS: ATTEND Internal Medicine Cardiovascular Disease
DX: Z01.812 Encounter for preprocedural laboratory examination (principal); Z20.822 Contact with and (suspected) exposure to COVID-19
CPT/HCPCS: 80048; 85025; U0003; U0005

== ENCOUNTER 2022-01-22 06:58 | Day surgery (SDC) | payer MEDICARE ==
[2022-01-21 11:48] VITALS: BMI 33.3
[2022-01-22] MEDS ORDERED: Lidocaine 1% PF 5 ML VIAL ONE (10:01)
[2022-01-22] MEDS ORDERED: PROPOFOL 200 MG/20 ML VIAL ONE (10:01)
[2022-01-22] MEDS ORDERED: Atropine Sulfate 1 mg/10 ml Syringe ONE (10:02)
== END 2022-01-22 11:12 | disposition home or self-care (01) ==
LOC: SDC 06:58
PROVIDERS: ATTEND Internal Medicine Cardiovascular Disease
DX: I48.19 Other persistent atrial fibrillation (principal); I11.0 Hypertensive heart disease with heart failure; I50.32 Chronic diastolic (congestive) heart failure; I25.10 Atherosclerotic heart disease of native coronary artery without angina pectoris; E78.00 Pure hypercholesterolemia, unspecified; G47.33 Obstructive sleep apnea (adult) (pediatric); J45.909 Unspecified asthma, uncomplicated; R73.03 Prediabetes; E66.9 Obesity, unspecified; Z68.33 Body mass index [BMI] 33.0-33.9, adult; Z79.82 Long term (current) use of aspirin; Z79.890 Hormone replacement therapy; Z79.899 Other long term (current) drug therapy; Z88.8 Allergy status to other drugs, medicaments and biological substances; Z95.1 Presence of aortocoronary bypass graft
CPT/HCPCS: 92960; 93005; 93010; J0461; J2704

== ENCOUNTER 2022-04-18 10:19 | Outpatient (CLI) | payer MEDICARE ==
[2022-04-18 12:14] LABS: Prothrombin Time 11.1 sec (9.5-12.1)
== END 2022-04-18 10:20 | disposition home or self-care (01) ==
LOC: LABBT 10:19
PROVIDERS: ATTEND Orthopaedic Surgery
DX: Z01.818 Encounter for other preprocedural examination (principal); M17.12 Unilateral primary osteoarthritis, left knee; Z20.822 Contact with and (suspected) exposure to COVID-19
CPT/HCPCS: 85610; 87081; 87811; 93005; 93010

== ENCOUNTER 2022-06-12 10:20 | Outpatient (CLI) | payer MEDICARE ==
[2022-06-12 11:44] LABS: #Basophils 0.1 10x3/uL (0.0-0.2); #Eosinphils 0.1 10x3/uL (0.0-0.5); #Monocytes 0.4 10x3/uL (0.0-1.1); #Neutrophils 3.5 10x3/uL (1.5-8.4); %Basophils 1.3 % (0.0-2.0); %Eosinophils 2.3 % (0.0-6.0); %Lymphocytes 25.7 % (18.0-47.0); %Neutrophils 63.5 % (40.0-75.0); Hemoglobin 12.3 g/dL (13.5-17.5); Mean Corpuscular HGB CONC 31.9 g/dL (32.0-36.0); Mean Corpuscular Hemoglobin 28.7 pg (27.0-33.0); Mean Platelet Volume 9.1 fl (7.4-10.4); Platelet Count 174 10x3/uL (150-450); RBC Distribution Width 14.5 % (11.5-14.5); Red Blood Cell (RBC) Count 4.28 10x6/uL (4.32-5.72); White Blood Cell (WBC) Count 5.6 10x3/uL (3.5-10.5)
[2022-06-12 11:55] LABS: INR-International Normal Ratio 1.1
[2022-06-12 12:06] LABS: Anion Gap 15 mmol/L (10-20); BUN (Urea Nitrogen) 14 mg/dL (8.4-25.7); Calc. Creatinine Clearance 0 mL/min (70-130); Calcium 8.8 mg/dL (7.8-10.44); Carbon Dioxide 26 mmol/L (23-31); Chloride 103 mmol/L (98-107); Estimated GFR 54; Glucose 113 mg/dL (83-110); Potassium 4.1 mmol/L (3.5-5.1); Sodium 140 mmol/L (136-145)
== END 2022-06-12 10:21 | disposition home or self-care (01) ==
LOC: LABBT 10:20
PROVIDERS: ATTEND Orthopaedic Surgery
DX: Z01.818 Encounter for other preprocedural examination (principal); M17.12 Unilateral primary osteoarthritis, left knee
CPT/HCPCS: 80048; 85025; 85610; 87081; 93005; 93010

== ENCOUNTER 2022-09-10 17:50 | Emergency (ER) | payer MEDICARE ==
[2022-09-10] MEDS ORDERED: CEFAZOLIN 2 GM VIAL ONE (18:16)
[2022-09-10] MEDS ORDERED: Morphine 4 MG/ML VIAL ONE (18:16)
[2022-09-10] MEDS ORDERED: Ondansetron PF 4 MG/2 ML Vial ONE (18:16)
[2022-09-10] MEDS ORDERED: Boostrix 0.5 ML (Tdap) VIAL (>/=7 yrs of age) ONE (18:16)
[2022-09-10] MEDS ORDERED: Lidocaine 1% w/Epinephrine 1:100K 20 ML VIAL ONE (18:16)
== END 2022-09-10 21:46 | disposition home or self-care (01) ==
LOC: ERS 17:50
DX: S02.31XB Fracture of orbital floor, right side, initial encounter for open fracture (principal); S61.511A Laceration without foreign body of right wrist, initial encounter; S06.0X0A Concussion without loss of consciousness, initial encounter; I10 Essential (primary) hypertension; W20.8XXA Other cause of strike by thrown, projected or falling object, initial encounter; Z23 Encounter for immunization
CPT/HCPCS: 12052; 70450; 70486; 90471; 90715; 96374; 96375; J2270; J2405